=== PATIENT | male | born 1950 | race Two or more races ===

== ENCOUNTER → 2019-05-14 | Outpatient (CLI) | payer OTHER | END | disposition home or self-care (01) | LOC: MRI 05-11 10:15 | DX: M75.121 Complete rotator cuff tear or rupture of right shoulder, not specified as traumatic (principal) | CPT/HCPCS: 73221 ==

== ENCOUNTER 2023-10-10 08:59 | Emergency (ER) | payer OTHER ==
[~2023-10-10] VITALS: Ht 180.3 cm; Wt 104.3 kg
[2023-10-10] MEDS ORDERED: METFORMIN HCL1000 M3 PO (09:09)
[2023-10-10] MEDS ORDERED: METOPROLOL SUCC25 MG PO (09:09)
[2023-10-10] MEDS ORDERED: GLIMEPIRIDE4 MG PO (09:10)
[2023-10-10 09:57] LABS: HEMATOCRIT 40.7 % (39.0-48.0); HEMOGLOBIN 14.1 g/dL (13-16.00); MEAN CELL VOLUME 88.3 fL (80.0-100.00); MEAN CORPUSCULAR HEMOGLOBIN 30.6 pg (27.00-32.0); MEAN CORPUSCULAR HGB CONC 34.7 g/dl (32.0-36.0); PLATELET COUNT 152 K/uL (150-450); RED BLOOD COUNT 4.61 M/uL (4.00-6.00); RED CELL DISTRIBUTION WIDTH 14.1 % (11.5-14.5)
== END 2023-10-10 12:27 | disposition home or self-care (01) ==
LOC: ER 08:59
PROVIDERS: Emergency Medicine
DX: J22 Unspecified acute lower respiratory infection (principal); Z20.822 Contact with and (suspected) exposure to COVID-19